=== PATIENT | male | born 1990 | race Hispanic/Latino ===

== ENCOUNTER 2019-02-21 11:45 | Emergency (ER) | payer SELFPAY ==
[2019-02-21] MEDS ORDERED: LIDOCAINE HCL 1% 20 ML VIAL ONE (12:34)
[2019-02-21] MEDS ORDERED: CEFAZOLIN SODIUM 1 GM VIAL ONE (14:23)
== END 2019-02-21 14:43 | disposition home or self-care (01) ==
LOC: EDH 11:45
DX: S61.211A Laceration without foreign body of left index finger without damage to nail, initial encounter (principal); X58.XXXA Exposure to other specified factors, initial encounter; Y93.89 Activity, other specified; Y92.69 Other specified industrial and construction area as the place of occurrence of the external cause; Y99.8 Other external cause status
CPT/HCPCS: 12042; 73130; 96372; 99284; J0690